=== PATIENT | female | born 1940 | race Caucasian/White ===

== ENCOUNTER 2018-04-09 12:25 | Emergency (ER) | payer MEDICARE, SELFPAY ==
[2018-04-09 12:27] VITALS: BP 111/57; PULSE 51; RESP 14; TEMP 36.1; O2SAT 99; BMI 31.2
--- NOTE | 2018-04-09 14:08 | EKG12_ITS ---
Test Reason : CONFUSION Blood Pressure : / mmHG Vent. Rate : 052 BPM Atrial Rate : 052 BPM P-R Int : 134 ms QRS Dur : 072 ms QT Int : 510 ms P-R-T Axes : -01 012 -09 degrees QTc Int : 474 ms Sinus bradycardia Otherwise normal ECG Confirmed by MEGHAN CHRISTIANSEN, KELY ([id number]), editor house organ SABAS CEBALLOS ([id number]) on 04/14/2018 2:15:22 PM Referred By: CAMRON Confirmed By:KELY CHRISTIANSON MD
--- NOTE | 2018-04-09 14:09 | CT_ITS ---
STUDY: CT BRAIN WITHOUT CONTRAST REASON FOR EXAM: Female, 77 years old. Alteration of awareness RADIATION DOSAGE (If Supplied By Facility): CTDIvol = ( 44.99 ) mGy, DLP = ( 745.49 ) mGycm TECHNIQUE: Transaxial CT imaging of the brain was performed without administration of intravenous contrast material. Individualized dose optimization techniques were used for this CT. COMPARISON: None. FINDINGS: The soft tissues are unremarkable. The osseous structures are unremarkable. There is mild cerebral atrophy with widening of the extra-axial spaces and ventricular dilatation. There are scattered areas of decreased attenuation within the white matter tracts of the supratentorial brain. The basal ganglia and thalami are unremarkable. No abnormalities are seen in the brainstem. The cerebellum is unremarkable. There are moderate vascular calcifications. There is no intracranial hemorrhage. There are no findings of acute ischemia. There is moderate mucosal thickening in the right maxillary sinus. There is trace fluid in the right sphenoid sinus. CT/Brain/Head without Contrast IMPRESSION: No acute intracranial abnormalities. There are scattered white matter changes likely representing microvascular disease. There is moderate right maxillary sinusitis and trace right sphenoid sinusitis. Electronically Signed: Anisa Boone MD at 15:21 EDT Tel Direct: [phone], Service support ,
--- NOTE | 2018-04-09 14:10 | RAD_ITS ---
STUDY: X-RAY CHEST REASON FOR EXAM: Female, 77 years old. Alteration of awareness TECHNIQUE: A single frontal view of the chest was obtained. COMPARISON: None. FINDINGS: The lungs are adequately aerated. There are minimal increased markings in both lung bases. There is no demonstrated pleural abnormality. There is mild enlargement of the cardiac silhouette. The mediastinum and hilar regions are unremarkable. Normal visualized pulmonary arteries. There is atherosclerotic calcification of the thoracic aorta. There are diffuse degenerative changes of the visualized spine. There are degenerative changes in both shoulders. There is no demonstrated abnormality of the visualized upper abdomen. RAD/Chest 1 View (Portable) IMPRESSION: There is mild enlargement of the cardiac silhouette without obvious pulmonary edema or pleural effusion. There is minimal bibasilar atelectasis. Electronically Signed: Anisa Boone MD at 14:29 EDT Tel Direct: [phone], Service support ,
--- NOTE | 2018-04-09 14:12 | ED.VISSUMM ---
- ER Visit Summary Date of Service: 04/09/18 Chief Complaint: Falls and confusion History of Present Illness: The patient is a 77 F history of hypertension and gout. On no blood thinners. Her recently traveled from [place] to visit family here in [facility]. She has had 3 falls today since midnight. She denies any headache. She is on no blood thinners. She denies any LOC. Daughter and are at bedside. She denies any nausea, vomiting, diarrhea or fever. Physical Examination: Older female no acute distress. Vital signs are stable afebrile. Pulse ox 99% on room air no signs of hypoxia. H EENT exam unremarkable nontender. No signs of trauma to the face or scalp. Neck nontender no lymphadenopathy. Trachea midline. Lungs clear to auscultation bilaterally. Heart regular rate and rhythm no murmur. Abdomen soft nontender. Normal bowel sounds no peritoneal signs. Chest wall nontender. Pelvic girdle intact. Nontender. She is moving all 4 extremities. They are neurovascularly intact. No deformities. Normal range of motion. She has mild bruising of the skin of the right forearm. However there is no deformity. The bones are nontender. She has normal equal symmetrical poultry helper strength. Neurologically she is awake and alert. She is moving all 4 extremities. However she is confused to day things since Friday. She is also confused a month thought was February. She does not have slurred speech at this time. No facial droop. No motor loss. Test Results: Chest x-ray shows no acute abnormalities are cardiomegaly. CT the brain shows sinusitis bradycardia rate of 52 but no signs of ischemia. CBC is unremarkable with a white count of 600 normal H&H. BMP is normal with a gap of 10 and a normal creatinine. UA was normal. The area both myself and the nurse walked patient different time she walked well with no ataxia. There are no prior visits to her hospital for comparison the labs. Per daughter's request and after telling me the patient does 134 consistent with alcohol intoxication. I suspect her transient mental status changes from that and the scopolamine patch. Emergency Department Course and Treatment: Older female recent travel from [place] and was using a scopolamine patch which they just took off. Having confusion and falls. Treatment Plan: Repeat exam patient is doing well. She ambulated without any difficulty. This may or may not be secondary to the scopolamine patch. Daughter took me aside and said she also likes to drink and drank relatively heavily the other day. We are trying to obtain an alcohol level at this time. Disposition: Discharge Impression: Acute decreased mental status resolved secondary to acute intoxication Acute falls ?3 today This note was generated with [employer] dictation software. It may contain incorrect words, spelling, and punctuation that were not noted in review of the chart prior to signing ED Disposition - Plan for ED Patient: Disposition: Home or Assisted Living Chief Complaint: Confusion Instructions: ED Confusion Referrals: [facility] Doctor,Out of [Primary Care Provider] - As soon as possible Additional Instructions: Do not use a scopolamine patch again. Never drink while using Butch bandage. No specific abnormalities today on your testing. Return to ER feeling worse. Watch your alcohol consumption
--- NOTE | 2018-04-09 14:15 | ED.DCSUM_ITS ---
- ER Visit Summary Date of Service: 04/09/18 Chief Complaint: Falls and confusion History of Present Illness: The patient is a 77 F history of hypertension and gout. On no blood thinners. Her recently traveled from [place] to visit family here in [facility]. She has had 3 falls today since midnight. She denies any headache. She is on no blood thinners. She denies any LOC. Daughter and are at bedside. She denies any nausea, vomiting, diarrhea or fever. Physical Examination: Older female no acute distress. Vital signs are stable afebrile. Pulse ox 99% on room air no signs of hypoxia. H EENT exam unremarkable nontender. No signs of trauma to the face or scalp. Neck nontender no lymphadenopathy. Trachea midline. Lungs clear to auscultation bilaterally. Heart regular rate and rhythm no murmur. Abdomen soft nontender. Normal bowel sounds no peritoneal signs. Chest wall nontender. Pelvic girdle intact. Nontender. She is moving all 4 extremities. They are neurovascularly intact. No deformities. Normal range of motion. She has mild bruising of the skin of the right forearm. However there is no deformity. The bones are nontender. She has normal equal symmetrical compliance specialist strength. Neurologically she is awake and alert. She is moving all 4 extremities. However she is confused to day things since Friday. She is also confused a month thought was February. She does not have slurred speech at this time. No facial droop. No motor loss. Test Results: Chest x-ray shows no acute abnormalities are cardiomegaly. CT the brain shows sinusitis bradycardia rate of 52 but no signs of ischemia. CBC is unremarkable with a white count of 600 normal H&H. BMP is normal with a gap of 10 and a normal creatinine. UA was normal. The area both myself and the nurse walked patient different time she walked well with no ataxia. There are no prior visits to her hospital for comparison the labs. Per daughter's request and after telling me the patient does 134 consistent with alcohol intoxication. I suspect her transient mental status changes from that and the scopolamine patch. Emergency Department Course and Treatment: Older female recent travel from [place] and was using a scopolamine patch which they just took off. Having confusion and falls. Treatment Plan: Repeat exam patient is doing well. She ambulated without any difficulty. This may or may not be secondary to the scopolamine patch. Daughter took me aside and said she also likes to drink and drank relatively heavily the other day. We are trying to obtain an alcohol level at this time. Disposition: Discharge Impression: Acute decreased mental status resolved secondary to acute intoxication Acute falls ?3 today This note was generated with [employer] dictation software. It may contain incorrect words, spelling, and punctuation that were not noted in review of the chart prior to signing ED Disposition - Plan for ED Patient: Disposition: Home or Assisted Living Chief Complaint: Confusion Instructions: ED Confusion Referrals: [facility] Doctor,Out of [Primary Care Provider] - As soon as possible Additional Instructions: Do not use a scopolamine patch again. Never drink while using Butch bandage. No specific abnormalities today on your testing. Return to ER feeling worse. Watch your alcohol consumption
[2018-04-09 14:26] VITALS: BP 107/69; PULSE 46; RESP 15; O2SAT 100
[2018-04-09 14:40] LABS: Anion Gap 10 (5-15); BUN 4 mg/dL (7-18); BUN/Creat Ratio 5.8 RATIO (10-20); Chloride 100 mmol/L (98-107); Creatinine, Serum 0.69 mg/dL (0.55-1.02); EST Glomerular Filtration Rate 87 mL/min (>60); Est Glom Filt Rate - Afr Amer 105 mL/min (>60); Estimated Creatinine Clearance 32.77 ml/min; Glucose 92 mg/dL (74-106); Potassium 3.6 mmol/L (3.5-5.1); Sodium Level 137 mmol/L (136-145)
[2018-04-09 14:44] LABS: Absolute Lymphocyte Count 2.35 X10^3/ul (0.83-4.51); Absolute Neutrophil Count 3.3 X10^3/uL (2.0-7.7); Basophil# 0.05 X10^3/uL; Basophil% 0.7 % (0-1); Eosinophil# 0.13 X10^3/uL; Eosinophils% 1.9 % (0-5); Hematocrit 39.4 % (37-47); Hemoglobin 13.3 g/dl (12.0-15.0); Lymphocyte # 2.35 X10^3/ul (4.0); Lymphocyte % 34.5 % (19-41); Mean Corp Hgb Conc 33.8 g/gl (32-36); Mean Corpuscular Volume 103.7 fL (81-99); Mean Platelet Vol. 10.6 fl (6.2-12.0); Monocyte# 0.99 X10^3/uL; Monocyte% 14.5 % (0-10); Neutrophil # 3.28 X10^3/uL (2.7-7.7); Neutrophil % 48.3 % (47-70); POSITIVE COUNT NO; POSITIVE DIFFERENTIAL NO; POSITIVE MORPHOLOGY NO; Platelet Count 259 K/mm3 (150-450); RBC Distribution Width CV 13.8 % (11.6-14.6); RBC Distribution Width SD 51.6 fl (35.1-43.9); White Blood Count 6.8 K/mm3 (4.4-11.0)
[2018-04-09 14:58] LABS: Bacteria 0 SEEN /hpf (None Seen); Mucous, Urine 0 SEEN /hpf (<or=2+); Red Blood Cells-Urine 0 SEEN /hpf (0-5); White Blood Cells 0 SEEN /hpf (0-5)
[2018-04-09 15:03] LABS: Color, Urine Yellow (Yellow); Glucose, Dipstick Normal (Normal); Ketone-Dipstick Negative (Negative); Leukocyte Esterase-Dipstick Negative /ul (Negative); Nitrite-Dipstick Negative (Negative); Occult Blood-Urine Negative /ul (Negative); Protein-Dipstick Negative (Negative); Specific Gravity, Urine 1.005 (1.002-1.030); Urine Bilirubin Dipstick Negative (Negative); Urine Clarity Sl. Cloudy (Clear); Urine Urobilinogen Normal (Normal)
[2018-04-09 15:10] LABS: Squamous Epithelial Cells - UA 0-5 SEEN /hpf (5-10)
[2018-04-09 15:39] VITALS: BMI 31.2
--- NOTE | 2018-04-09 16:32 | DCINST.ED_ITS ---
ED Disposition - Plan for ED Patient: Disposition: Home or Assisted Living Chief Complaint: Confusion Instructions: ED Confusion Referrals: [facility] Doctor,Out of [Primary Care Provider] - As soon as possible Additional Instructions: Do not use a scopolamine patch again. Never drink while using Butch bandage. No specific abnormalities today on your testing. Return to ER feeling worse. Watch your alcohol consumption
[2018-04-09 16:55] VITALS: BP 116/52; PULSE 56; RESP 16; O2SAT 97
== END 2018-04-09 17:00 | disposition home or self-care (01) ==
PROVIDERS: Emergency Provider Emergency Medicine
DX: R41.82 Altered mental status, unspecified (principal); F10.129 Alcohol abuse with intoxication, unspecified; Y90.9 Presence of alcohol in blood, level not specified; R29.6 Repeated falls; S50.11XA Contusion of right forearm, initial encounter; X58.XXXA Exposure to other specified factors, initial encounter; Y93.9 Activity, unspecified; Y92.9 Unspecified place or not applicable; M10.9 Gout, unspecified; I10 Essential (primary) hypertension; J32.9 Chronic sinusitis, unspecified; Z79.899 Other long term (current) drug therapy
CPT/HCPCS: 70450; 71045; 80048; 80320; 81001; 85025; 93005; 99284; A4216; G0480